=== PATIENT | male | born 1975 | race Caucasian/White ===

== ENCOUNTER 2017-02-21 16:27 | Emergency (ER) | payer OTHER ==
[2017-02-21 16:40] VITALS: RESP 18
--- NOTE | 2017-02-21 18:00 | C.PDOC ---
History Of Present Illness 41 y/o male presents to ED for evaluation of pain and swelling to right foot that developed yesterday. Pt states that he was not able to bear weight on that foot. Notes pain is worse with movement. Pt is not sure if he has history of gout. Admits to eating a lot of red meat. Pt also notes he had a peice of wood fall on his foot 6 months ago, no fracture at the time, notes some skin changes from the injury. Otherwise, denies any fall, trauma, change in sensation, or fever. Time Seen by Provider: 02/21/17 17:10 Chief Complaint (Nursing): Lower Extremity Problem/Injury History Per: Patient History/Exam Limitations: no limitations Onset/Duration Of Symptoms: Days (1) Current Symptoms Are (Timing): Still Present Recent travel outside of the [place]: No Additional History Per: Patient Past Medical History Reviewed: Historical Data, Nursing Documentation, Vital Signs Vital Signs: Last Vital Signs Temp 98.2 F 02/21/17 19:22 Pulse 72 02/21/17 19:22 Resp 18 02/21/17 19:22 BP 150/87 02/21/17 19:22 Pulse Ox 100 02/21/17 20:21 - Medical History PMH: HTN Family History: States: Unknown Family Hx - Social History Hx Alcohol Use: Yes Hx Substance Use: No - Immunization History Hx Tetanus Toxoid Vaccination: No Hx Influenza Vaccination: No Hx Pneumococcal Vaccination: No Review Of Systems Except As Marked, All Systems Reviewed And Found Negative. Constitutional: Negative for: Fever, Chills Musculoskeletal: Positive for: Foot Pain (right) Skin: Negative for: Rash, Bruising Neurological: Negative for: Weakness, Numbness Physical Exam - Physical Exam Appears: Non-toxic, No Acute Distress Skin: Warm, Dry, Other (two 3x6cm area of hyperpigmentation to dorsal aspect of right foot and ankle (pt notes it is from prior injury)) Head: Atraumatic, Normacephalic Eye(s): bilateral: Normal Inspection, EOMI Nose: Normal Oral Mucosa: Moist Neck: Supple Chest: Symmetrical Respiratory: No Accessory Muscle Use Extremity: Normal ROM, Tenderness (dorsal aspect of right foot), No Pedal Edema , No Calf Tenderness, Capillary Refill (<2 sec.), No Deformity, Swelling ( dorsal aspect of right foot), Other (warmth, and erythema to dorsum of right foot) Pulses: Left Dorsalis Pedis: Normal, Right Dorsalis Pedis: Normal Neurological/Psych: Oriented x3, Normal Speech, Normal Motor, Normal Sensation ED Course And Treatment O2 Sat by Pulse Oximetry: 100 (on RA) Pulse Ox Interpretation: Normal - Other Rad Right foot x-ray X-Ray: Interpreted by Me, Viewed By Me Interpretation: PROCEDURE: Right Foot Radiographs. HISTORY: pain. COMPARISON : None. FINDINGS: BONES: No evidence of acute fracture. JOINTS: Arthritic degenerative changes seen more prominent at the 1st metatarsal-phalangeal and inter phalangeal joints. SOFT TISSUES: Mild soft tissue swelling. OTHER FINDINGS: None. IMPRESSION: No evidence of acute fracture. Arthritic degenerative changes. Progress Note: Right foot x-ray ordered and reviewed. Pt declined pain medications. Fernando wrap and cast shoe applied by facility technician. Pt is being discharged home with instructions to follow up with PMD in 1-2 days for further evaluation. Discussed possible ddx including but not limited gout, cellulitis, and sprain. Discussed pt will be treated for all three. Disposition - Disposition Referrals: [facility] at [facility] [Outside] Margarita Hagan MD [Staff Provider] - Disposition: HOME/ ROUTINE Disposition Time: 18:25 Condition: STABLE Additional Instructions: Vaya a olson mdico o la clnica en 2-5 chamberlain sin falta, para mas evaluacin. [place] los medicamentos benigno indicado. Volver a la vasile de emergencia en cualquier momento si los sntomas persisten o empeoran. Instructions: Foot Sprain (ED) Forms: [employer] (Italian) Print Language: FAROESE - Clinical Impression Clinical Impression: Foot pain - PA / EVAPORATOR OPERATOR MOLASSES / Resident Statement MD/DO has reviewed & agrees with the documentation as recorded. - Scribe Statement The provider has reviewed the documentation as recorded by the Scribcharly Morin All medical record entries made by the Scribe were at my direction and personally dictated by me. I have reviewed the chart and agree that the record accurately reflects my personal performance of the history, physical exam, medical decision making, and the department course for this patient. I have also personally directed, reviewed, and agree with the discharge instructions and disposition.
--- NOTE | 2017-02-21 18:39 | RAD ---
PROCEDURE: Right Foot Radiographs. HISTORY: pain COMPARISON: None. FINDINGS: BONES: No evidence of acute fracture. JOINTS: Arthritic degenerative changes seen more prominent at the 1st metatarsal-phalangeal and inter phalangeal joints SOFT TISSUES: Mild soft tissue swelling. OTHER FINDINGS: None. IMPRESSION: No evidence of acute fracture. Arthritic degenerative changes.
[2017-02-21 19:23] VITALS: BP 150/87; PULSE 72; TEMP 98.2
[2017-02-21 19:51] VITALS: O2SAT 100
== END 2017-02-21 19:28 | disposition home or self-care (01) ==
LOC: C.ER 16:27
DX: M79.671 Pain in right foot (principal); I10 Essential (primary) hypertension
CPT/HCPCS: 73630; 96372; 99285; J1885

== ENCOUNTER 2017-02-23 04:59 | Emergency (ER) | payer OTHER ==
[2017-02-23 05:07] VITALS: RESP 18
[2017-02-23] MEDS ORDERED: Sodium Chloride 0.9% 1,000 ML IV ONE (05:14)
--- NOTE | 2017-02-23 05:15 | C.PDOC ---
Time Seen by Provider: 02/23/17 05:14 Chief Complaint (Nursing): Back Pain Past Medical History Vital Signs: Last Vital Signs Temp 98.1 F 02/23/17 05:06 Pulse 80 02/23/17 05:06 Resp 18 02/23/17 05:06 BP 145/88 02/23/17 05:06 Pulse Ox 100 02/23/17 05:06 - Medical History PMH: HTN Family History: States: Unknown Family Hx - Social History Hx Alcohol Use: Yes Hx Substance Use: No - Immunization History Hx Tetanus Toxoid Vaccination: No Hx Influenza Vaccination: No Hx Pneumococcal Vaccination: No ED Course And Treatment O2 Sat by Pulse Oximetry: 100 Disposition Counseled Patient/Family Regarding: Studies Performed, Diagnosis - Disposition Disposition Time: 05:14 Forms: [employer] (Yakut)
--- NOTE | 2017-02-23 05:20 | C.PDOC ---
History Of Present Illness patient presents with 2 days of left flank pain radiating from the back to the groin. Worsening since. Sharp stabbing pain. No f/c some nausea. tolerating po Time Seen by Provider: 02/23/17 05:14 Chief Complaint (Nursing): Back Pain History Per: Patient History/Exam Limitations: no limitations Onset/Duration Of Symptoms: Days (2) Current Symptoms Are (Timing): Still Present Context: Other Severity: Moderate Pain Scale Rating Of: 5 Location Of Pain/Discomfort: LLQ Radiation Of Pain To:: Flank Quality Of Discomfort: Sharp, Pressure Associated Symptoms: denies: Fever, Chills, Nausea Exacerbating Factors: None Alleviating Factors: None Last Bowel Movement: Yesterday Recent travel outside of the [place]: No Additional History Per: Family Past Medical History Reviewed: Historical Data, Nursing Documentation, Vital Signs Vital Signs: Last Vital Signs Temp 98.1 F 02/23/17 05:06 Pulse 80 02/23/17 05:06 Resp 18 02/23/17 05:06 BP 145/88 02/23/17 05:06 Pulse Ox 100 02/23/17 05:22 - Medical History PMH: HTN Family History: States: No Known Family Hx - Social History Hx Alcohol Use: Yes Hx Substance Use: No - Immunization History Hx Tetanus Toxoid Vaccination: No Hx Influenza Vaccination: No Hx Pneumococcal Vaccination: No Review Of Systems Constitutional: Negative for: Fever, Chills Cardiovascular: Negative for: Chest Pain Respiratory: Negative for: Shortness of Breath Gastrointestinal: Positive for: Abdominal Pain. Negative for: Nausea, Vomiting Genitourinary: Negative for: Dysuria Musculoskeletal: Positive for: Back Pain Skin: Negative for: Rash, Lesions Neurological: Negative for: Weakness Psych: Negative for: Anxiety Physical Exam - Physical Exam Appears: Non-toxic Skin: Warm, Dry Head: Normacephalic Oral Mucosa: Moist Neck: Supple Chest: Symmetrical Cardiovascular: Rhythm Regular Respiratory: No Rales, No Rhonchi, No Wheezing Gastrointestinal/Abdominal: Soft, Tenderness (LEFT FLANK) Back: CVA Tenderness (LEFT) Male Genital: No Testicular Tenderness, No Inguinal Tenderness Extremity: Normal ROM Extremity: Bilateral: Atraumatic Neurological/Psych: Oriented x3, Normal Speech, Normal Cognition Gait: Steady ED Course And Treatment - Laboratory Results Result Diagrams: 02/23/17 05:21 02/23/17 05:21 O2 Sat by Pulse Oximetry: 100 Pulse Ox Interpretation: Normal Reevaluation Time: 06:50 Reassessment Condition: Improved Medical Decision Making Medical Decision Making: Upon provider reevaluation patient is feeling better, is medically stable, and requires no further treatment in the ED at this time. Patient will be discharged home with Rx for flomax, naproxen . Counseling was provided and all questions were answered regarding diagnosis and need for follow up with dr zeng. There is agreement to discharge plan. Return if symptoms persist or worsen. Disposition Counseled Patient/Family Regarding: Studies Performed, Diagnosis, Need For Followup, Rx Given - Disposition Referrals: Enzo Zeng MD [Staff Provider] - Disposition: HOME/ ROUTINE Disposition Time: 05:18 Condition: FAIR Prescriptions: Naproxen [Naprosyn] 1 tab PO BID PRN #15 tab PRN Reason: Pain Ondansetron ODT [Zofran ODT] 1 odt PO BID PRN #6 odt PRN Reason: Nausea/Vomiting Tamsulosin [Flomax] 0.4 mg PO DAILY #14 cap Instructions: Renal Colic (ED), Kidney Stones (DC) Forms: [id number] (Georgian) Print Language: AMHARIC - Clinical Impression Clinical Impression: Kidney stone on left side, Renal colic on left side
[2017-02-23 05:27] LABS: BASO % 0.3 % (0.0-2.0); EOS # 0.3 K/uL (0.0-0.7); EOS % 3.3 % (0.0-4.0); HEMATOCRIT 45.1 % (35.0-51.0); LYMPH # 3.5 K/uL (1.0-4.3); MEAN CELL VOLUME 84.3 fL (80.0-94.0); MEAN CORPUSCULAR HEMOGLOBIN 27.9 pg (27.0-31.0); MEAN CORPUSCULAR HGB CONC 33.1 g/dL (33.0-37.0); MEAN PLATELET VOLUME 8.1 fL (7.2-11.7); MONO # 0.7 K/uL (0.0-0.8); MONO % 7.2 % (0.0-10.0); NRBC % 0.2 % (0.0-2.0); RED CELL DISTRIBUTION WIDTH 14.5 % (11.5-14.5)
[2017-02-23 05:33] LABS: RBC URINE 336 /hpf (0-3); URINE BILIRUBIN NEGATIVE (NEGATIVE); URINE BLOOD 3+ (NEGATIVE); URINE COLOR Yellow (YELLOW); URINE GLUCOSE (UA) NORMAL (Normal); URINE KETONE NEGATIVE (NEGATIVE); URINE LEUKOCYTE ESTERASE NEG Leu/uL (Negative); URINE PROTEIN NEGATIVE (NEGATIVE); URINE UROBILINOGEN NORMAL mg/dL (0.2-1.0); WBC URINE 1 /hpf (0-5)
[2017-02-23 05:39] LABS: ALB/GLOB RATIO 1.2 (1.0-2.1); ALKALINE PHOSPHATASE 87 U/L (38-126); ALT/SGPT 31 U/L (21-72); AST/SGOT 21 U/L (17-59); BILIRUBIN,TOTAL 0.6 mg/dL (0.2-1.3); BLOOD UREA NITROGEN 11 mg/dL (9-20); CALCIUM 9.2 mg/dl (8.6-10.4); CARBON DIOXIDE 26 mmol/L (22-30); CHLORIDE 100 mmol/L (98-107); GFR AFRICAN-AMERICAN > 60; GLUCOSE,RANDOM 101 mg/dL (75-110); POTASSIUM 3.7 mmol/L (3.6-5.2); SODIUM 143 mmol/L (132-148); TOTAL PROTEIN 8.1 g/dL (6.3-8.3)
--- NOTE | 2017-02-23 06:46 | CT ---
EXAM: CT Abdomen and Pelvis Without Intravenous Contrast CLINICAL HISTORY: 41 years old, male; Pain; Abdominal pain; Additional info: Left flank pain, radiating towards the groin TECHNIQUE: Axial computed tomography images of the abdomen and pelvis without intravenous contrast. All CT scans at this facility use one or more dose reduction techniques, viz.: automated exposure control; ma/kV adjustment per patient size (including targeted exams where dose is matched to indication; i.e. head); or iterative reconstruction technique. Coronal and sagittal reformatted images were created and reviewed. COMPARISON: No relevant prior studies available. FINDINGS: Limitations: Motion artifact - mild. Lower thorax: No acute findings. ABDOMEN: Liver: Unremarkable. Gallbladder and bile ducts: No calcified stones. No ductal dilation. Pancreas: Unremarkable. No ductal dilation. Spleen: No splenomegaly. Adrenals: No mass. Kidneys and ureters: No renal calculi. Mild pelvocaliectasis of LEFT kidney. Mildly dilated LEFT ureter. 0.2 x 0.2 x 0.1 cm calculus at or just beyond LEFT ureterovesical junction. Stomach and bowel: No definite mural thickening. No obstruction. Appendix: No findings to suggest acute appendicitis. PELVIS: Bladder: Unremarkable. No stones. Reproductive: Unremarkable as visualized. ABDOMEN and PELVIS: Intraperitoneal space: No significant fluid collection. No free air. Bones/joints: No acute fracture. Soft tissues: Minimal gynecomastia. Tiny inguinal hernias containing fat. Vasculature: Unremarkable. No aneurysm. Lymph nodes: No pathologically enlarged lymph nodes. IMPRESSION: 1. LEFT distal ureteral calculus with mild hydroureteronephrosis. 2. Incidental/non-acute findings are described above.
[2017-02-23 07:24] VITALS: BP 137/81; PULSE 69; TEMP 97.7; O2SAT 98
== END 2017-02-23 07:25 | disposition home or self-care (01) ==
LOC: C.ER 04:59
DX: N13.2 Hydronephrosis with renal and ureteral calculous obstruction (principal)
CPT/HCPCS: 74176; 80053; 81001; 83690; 85025; 96374; 96375; 99284; J1885; J2405; J7040